=== PATIENT | male | born 1960 | race Caucasian/White ===

== ENCOUNTER 2024-12-10 04:29 | Emergency (ER) | payer MEDICAID, OTHER ==
[~2024-12-10] VITALS: Ht 182.9 cm; Wt 105.6 kg
--- NOTE | 2024-12-10 05:29 | ED.PDOC ---
Eye-HPI HPI Comments PT PRESENTED TO ED FOR RIGHT SIDED SORE THROAT X3 HOURS. PT STATED HE FEELS "SOME PRESSURE ON MY RIGHT NECK WHEN I LAY DOWN. (+) DIFFICULTY SWALLOWING. DENIES CHEST PAIN, DIFFICULTY BREATHING, SHORTNESS OF BREATH, NAUSEA, VOMITING, DIARRHEA FEVER OR CHILLS. Chief Complaint: Sore Throat Time Seen by MD: 04:55 Reviewed Notes: Nurses Notes, Medications Allergies: Coded Allergies: No Known Drug Allergy (Verified Allergy, Unknown, 12/10/24) Home Meds Active Scripts Amoxicillin Trihydrate (Amoxicillin) 500 Mg Tab, 1 TAB PO TID for 7 Days, #21 TAB Prov:MELA FELDER MD 12/10/24 Information Source: Patient Mode of Arrival: Ambulatory Past Medical History PAST MEDICAL HISTORY: Denies Surgical History: Denies all surgeries Family History Family History: Reviewed,noncontributory to illness Social History Smoker: Non-Smoker Alcohol: Denies ETOH Use Drugs: Denies Drug Use All Other Systems: Reviewed and Negative (hep) Physical Exam General Appearance: Moderate Distress, Normal HEENT: Normal ENT Inspection, Pharynx Normal, TMs Normal Neck: Full Range of Motion, Non-Tender Respiratory: Lungs Clear, No Respiratory Distress, Normal Breath Sounds Cardiovascular: No Edema, No JVD, No Murmur, No Gallop, Normal Peripheral Pulses, Regular Rate/Rhythm Breast Exam: Deferred Gastrointestinal: No Organomegaly, Non Tender, No Pulsatile Mass, Normal Bowel Sounds, Soft Genitalia: Deferred Pelvic: Deferred Rectal: Deferred Extremities: Normal range of motion Musculoskeletal : Apperance: Normal Neurologic: Alert, No Motor Deficits, Normal Affect, Normal Mood, No Sensory Deficits Cerebellar Function: NOT DONE Reflexes: NOT DONE Skin: Dry, Normal Color, Warm Peripheral Pulses: 3+ Radial (R), 3+ Radial (L) Lymphatic: No Adenopathy Was a procedure done? Was a procedure done?: No EENT DIFF Eye: N/A Ear: N/A Nose: N/A Mouth: N/A Sore Throat: Epiglottitis, Peritonsillar Abscess, Peritonsillar Cellulitis, Pharyngitis, URI, Other (fb) X-Ray, Labs, Meds, VS Vital Signs Date Time Temp Pulse Resp B/P (MAP) Pulse Ox O2 Delivery O2 Flow Rate FiO2 12/10/24 07:25 98.9 89 18 137/68 (91) 96 98.9 12/10/24 05:14 68 16 97 Room Air 12/10/24 04:32 97.9 68 16 155/85 97 97.9 Patient alert. Vitals stable. No sign of distress. Saturation pristine on room air. Soft tissue neck reviewed does not show any acute process. Possible early pharyngitis. No leg swelling. No chest pain. No shortness a breath. Heart rate within normal limits. Saturation pristine on room air. Was given prescription of amoxicillin antibiotic. Explained to the patient. Was told to follow up with his primary care physician. Was told to come back if there is any problem. X-Ray, Labs, Meds, VS Comment PENDING CT SOFT TISSUE OF NECK Time of 1ST Reevaluation: 17:28 Reevaluation 1ST: Unchanged Reevaluation 2ND: Improved Patient Education/Counseling: Diagnosis, Treatment, Prognosis, Need For Follow Up Family Education/Counseling: No Family Present SEPSIS Sepsis Screen Date sepsis recognized/suspect: Dec 10, 2024 Time Sepsis recognized/suspect: 434 Recent Procedure: No On Antibiotic Therapy: No Respiratory Rate >20: No Heart Rate >90: No Temp<36 C (96.8 F) or >38.3 C: No SBP <90 or MAP <65 mmHG: No New Acute Mental Status Change: No Is the patient on CPAP, BIPAP,: No Physician Orders Neck Without Contrast (12/10/24 05:12) Vital Signs Date Time Temp Pulse Resp B/P (MAP) Pulse Ox O2 Delivery O2 Flow Rate FiO2 12/10/24 07:25 98.9 89 18 137/68 (91) 96 98.9 12/10/24 05:14 68 16 97 Room Air 12/10/24 04:32 97.9 68 16 155/85 97 97.9 Departure 1 Departure Time of Disposition: 07:02 Impression: Primary Impression: Pharyngitis Qualified Codes: J02.9 - Acute pharyngitis, unspecified Disposition: 01 HOME / SELF CARE / HOMELESS Condition: Good e-Prescriptions Amoxicillin Trihydrate (Amoxicillin) 500 Mg Tab 1 TAB PO TID for 7 Days, #21 TAB Prov: MELA FELDER MD 12/10/24 Discharged With: Self Critical Care Note Critical Care Time?: No Stability Stability form required: TAD Richard Dec 10, 2024 05:29 MELA FELDER MD Dec 10, 2024 07:03
--- NOTE | 2024-12-10 06:47 | DVH ---
EXAM: CT NECK WITHOUT CONTRAST INDICATION: Right-sided throat possible foreign body Exam Date: 12/10/2024 05:21 AM COMPARISON: None TECHNIQUE: CT of the neck with intravenous contrast. RADIATION DOSE: CTDIvol: 22.97 mGy, DLP: 741.36 mGy*cm FINDINGS: There is no evidence of cervical mass lesion, pathologically enlarged lymph nodes or fluid collection . No radiodense foreign body. The fat planes of the neck appear intact. The airway and larynx are unremarkable. The parotid, submandibular and thyroid glands are unremarkable. The vascular structures of the neck appear patent. The visualized lung apices are clear. The limited visualized portions of the brain are unremarkable. The osseous structures are unremarkable. The visualized paranasal sinuses and mastoid air cells are clear. IMPRESSION: 1. No evidence of cervical mass lesion, pathologically enlarged lymph nodes or fluid collection. 2. No radiodense foreign bodies noted.
[2024-12-10] MEDS ORDERED: AMOX500T3 PO (07:03)
[2024-12-10 07:25] VITALS: BP 137/68; PULSE 89; RESP 18; TEMP 98.9; O2SAT 96
== END 2024-12-10 07:26 | disposition home or self-care (01) ==
LOC: ER 04:41
DX: J02.9 Acute pharyngitis, unspecified (principal); R42 Dizziness and giddiness; Z79.899 Other long term (current) drug therapy
CPT/HCPCS: 70490